=== PATIENT | female | born 1970 | race Caucasian/White ===

== ENCOUNTER 2020-06-04 13:45 | Emergency (ER) | payer OTHER, SELFPAY ==
--- NOTE | ~2020-06-04 | XR_ITS ---
EXAMINATION: XR hip LT 2V w AP pelvis EXAM DATE: 06/04/2020 14:28 INDICATION: Initial encounter following injury, with pain of the left hip. Fall. TECHNIQUE: Left hip frontal, 'frog leg' projections for interpretation. Frontal projection pelvis. C omparison is made to prior examination from 02/13/2018. FINDINGS: Smooth left hip femoral head contour, no radiographic evidence of avascular necrosis. Ther e is mild left hip primary osteoarthritis. There are no acute fractures or dislocations identified. There is no subcutaneous gas. The soft tissue is unremarkable. Right hip replacement and lower lum bar fusion. Sacrum, sacroiliac joints, sacral arcuate lines are intact. IMPRESSION: 1. Pelvis, left hip exam without acute osseous findings. Reviewed, dictated and finalized at location A.
--- NOTE | ~2020-06-04 | CT_ITS ---
EXAMINATION: CT brain wo con, CT cervical spine wo con EXAM DATE: 06/04/2020 14:16 (accession [id number]), 06/04/2020 14:17 (accession [id number]) INDICATION: Fall, head injury, neck pain. TECHNIQUE: Spiral CT of the head was performed without contrast. Axial, coronal and sagittal images were reviewed. Spiral CT of the cervical spine was performed without contrast. Axial images were rev iewed. Coronal and sagittal reformatted images were also reviewed. The dose-length product (DLP) fo r this examination was 605.33 (accession [id number]), 613.09 (accession [id number]) mGy-cm. The exposure was tailored according to patient size, and iterative reconstruction (ASIR) was used as additional dose reduction technique. There is no prior study for comparison. FINDINGS: HEAD CT: There is no acute intraparenchymal hemorrhage. No evidence of intraparenchymal brain mass l esion. No evidence of acute infarction. There is no mass effect or midline shift. There is no obstru ctive hydrocephalus suspected. There are no extra-axial collections. There are no acute calvarial f ractures. The orbits are unremarkable. Soft tissue is unremarkable. The visualized sinuses and mas toid air cells are well aerated. CERVICAL CT: There is no evidence of acute cervical fracture. The odontoid process is intact. Pre-d ens space is normal. Prevertebral soft tissue is normal. There are no soft tissue abnormalities pratibha ntified. There is no disc space widening or traumatic vertebral body subluxation suspected. Overall mild to moderate cervical arthropathy. There is moderate disc disease at C5-6 and 6-7. A detailed l evel by level evaluation of spondylosis can be added as addendum if requested. IMPRESSION: 1. No acute intracranial findings or cervical fracture. Reviewed, dictated and finalized at location A. IMPRESSION: 1. No acute intracranial findings or cervical fracture.
--- NOTE | ~2020-06-04 | CT_ITS ---
EXAMINATION: CTA chest PE protocol DATE: 06/04/2020 16:49 INDICATION: Back pain. Syncope. Elevated d-dimer. TECHNIQUE: Computed tomography (CT) pulmonary angiogram of the chest was performed with 100 mL Omnipa que-350 intravenous contrast. Additional 3D reconstructions utilizing coronal maximum intensity proje ction (MIP) were performed. Automated exposure control and iterative reconstruction technique were em ployed. The dose-length product was 988.37 mGy-cm. COMPARISON: CT abdomen and pelvis dated 08/21/2018 FINDINGS: Poor contrast opacification of the pulmonary arteries with the peak of the contrast bolus having pass ed into the pulmonary veins and left atrium. There is mild streak artifact from dense contrast in the superior vena cava and right atrium. Overall this decreases sensitivity in the first order segmental pulmonary arteries and rendered a more peripheral assessment of the subsegmental pulmonary arteries essentially nondiagnostic. No central pulmonary embolism identified. Mild dependent atelectasis in th e bilateral lower lobes and mild discoid atelectasis at the lingula. No pulmonary edema, pleural effu amanda or pneumothorax. Heart size is normal. No pericardial effusion. Thoracic aorta is normal in wyatt wniter with no dissection. No pathologically enlarged thoracic lymphadenopathy. Diffuse hepatic steatosi s. Chronic pneumobilia likely related to prior cholecystectomy with sternotomy. Moderate thoracic spo ndylosis. IMPRESSION: 1. No central pulmonary embolism. Sensitivity decreased in the segmental pulmonary arteries and essen tially nondiagnostic in the subsegmental pulmonary arteries due to suboptimal timing of the contrast bolus. Reviewed, dictated and finalized at location A. IMPRESSION: 1. No central pulmonary embolism. Sensitivity decreased in the segmental pulmon daniela arteries and essentially nondiagnostic in the subsegmental pulmonary arteri es due to suboptimal timing of the contrast bolus.
--- NOTE | ~2020-06-04 | XR_ITS ---
EXAMINATION: XR lumbar spine 2-3V EXAM DATE: 06/04/2020 14:28 INDICATION: Initial encounter following injury, with pain of the lumbar spine. TECHNIQUE: Lumber spine frontal, lateral, lateral L5-S1 projections for interpretation. There is no prior study for comparison. FINDINGS: Posterior and interbody fusion L4-5. There is moderate to severe loss of the L2-3 disc hei ght, moderate disc disease L3-4 and mild to moderate at L5-S1. The vertebral bodies are aligned in th e AP dimension. Moderate lumbar facet arthropathy. The vertebral body heights are maintained. Minimal lumbar levoscoliosis. There are cholecystectomy clips. Paraspinal site should otherwise unremarkable . IMPRESSION: 1. No acute lumbar findings. 2. Intact L4-5 fusion. 3. Spondylosis. Reviewed, dictated and finalized at location A.
--- NOTE | ~2020-06-04 | XR_ITS ---
EXAMINATION: XR chest 1V EXAM DATE: 06/04/2020 14:28 INDICATION: Fall, wheezing. TECHNIQUE: Frontal and lateral projections of the chest obtained and reviewed. Comparison is made to prior examination from 01/13/2005. FINDINGS: The lungs are clear. There are no pleural effusions. The cardiomediastinal silhouette is within normal limits. There is no pneumothorax suspected. The bones and soft tissues are unremarkab le. IMPRESSION: No acute cardiopulmonary findings. Reviewed, dictated and finalized at location A.
[2020-06-04 13:56] VITALS: BP 110/62; PULSE 89; RESP 20; TEMP 36.6; O2SAT 96
--- NOTE | 2020-06-04 13:58 | ECG_ITS ---
Measurements Intervals [place] Rate: 87 P: 76 HI: 163 QRS: 13 QRSD: 89 T: 29 QT: 339 QTc: 410 Interpretive Statements SINUS RHYTHM BASELINE ARTIFACT- I, II, III, AVR, AVL, AVF, V1-V6 BORDERLINE ECG Electronically Signed On 06-04-2020 14:51:23 CDT by Corey Hannon D.O.
--- NOTE | 2020-06-04 14:05 | ED.FALL ---
HPI - Fall General Chief Complaint: Fall Stated Complaint: BACK PAIN Time Seen by Provider: 06/04/20 13:46 Source: patient Mode of arrival: EMS Limitations: no limitations History of Present Illness HPI Narrative: This patient is a 49 year old female with history DM, Chronic back pain, fibromyalgia who presents via EMS for evaluation of possible syncopal episode. She states she was walking when she developed tingling around mouth and dizziness. She states next thing she knew she was on the ground. She does not know if she passed out. She reports headache, left neck pain, lower back pain and left hip pain. She denies chest pain, cough or sob. She reports she still has some dizziness and nausea. Related Data Home Medications Medication Instructions Recorded Confirmed metformin 500 mg tablet 1,000 mg PO BID tablet 07/31/19 nystatin 100,000 unit/gram topical 1 applic TOPICAL BID 07/31/19 cream oxycodone-acetaminophen 5 mg-325 1 tablet PO Q6H PRN 07/31/19 mg tablet Allergies Allergy/AdvReac Type Severity Reaction Status Date / Time duloxetine Allergy Unknown Unknown Verified 09/26/19 08:04 erythromycin base Allergy Unknown Unknown Verified 09/26/19 08:04 gabapentin Allergy Unknown Unknown Verified 09/26/19 08:04 milnacipran Allergy Unknown Unknown Verified 09/26/19 08:04 Sulfa (Sulfonamide Allergy Unknown Aptyalism Verified 09/26/19 08:04 Antibiotics) Review of Systems Review of Systems: All systems reviewed & are unremarkable except as noted in HPI and below Constitutional: Constitutional: Denies chills and Denies fever(s) Eyes: Eyes: Reports change in vision ENT: Reports dizziness and Denies nasal congestion Cardiovascular: Cardiovascular: Denies chest pain Respiratory: Respiratory: Denies cough and Denies dyspnea Gastrointestinal: Gastrointestinal: Denies abdominal pain, Reports nausea and Reports vomiting Musculoskeletal: Musculoskeletal: Reports back pain and Reports arthralgias Neurologic: Reports dizziness, Reports headache(s) and Reports numbness PMFSH Past Medical History Medical History (Updated 06/04/20 @ 18:02 by Raiza Grace MD) Diabetes mellitus Fibromyalgia Polycystic ovarian syndrome Surgical History Surgical History (Updated 06/04/20 @ 14:10 by Raiza Grace MD) History of bilateral knee replacement Social History Social History Smoking status: Former smoker Second hand tobacco smoke exposure: No Smoking end date: 09/05/08 Alcohol intake: never Exam Const: General: alert Nutritional Appearance: obese Orientation/consciousness: patient oriented x3 HENMT: Head: normocephalic and atraumatic Face and sinus: face symmetric Mouth: Yes Normal oral and palatal mucosa present, Yes lip normal, Yes oropharynx normal and Yes audible dysphonia Throat: posterior oropharynx normal, tonsils normal and uvula midline Eyes: Pupils: Equal, round and reactive pupils present EOM: EOMs intact bilaterally Neck: Neck: no lymphadenopathy Chest: Chest palpation & inspection: normal inspection of the chest Resp: Effort & Inspection: normal respiratory effort, no retractions and no use of accessory muscles Auscultation: clear to auscultation bilaterally Cardio: Rate: regular rate Rhythm: regular rhythm Heart sounds: no murmurs GI: GI Palp: Yes Soft to palpation, No Tenderness to palpation present (GI), No Guarding due to palpation present (GI) and No Rigid due to palpation Skin: General skin exam: normal color Rashes: no rashes Neuro: General: patient oriented x3, moves all extremities and CN's II-XI intact bilaterally Extrem: General: normal to inspection and no pedal edema Course Reevaluation(s) Reevaluation #1: Patient has been able to ambulate without complaint. I reviewed test with patient. [facility] Date: 06/04/20 Time: 17:59 Vital Signs Vital signs: Chacha
[2020-06-04 14:07] LABS: Basophils Percent Auto 0.4 % (0.2-1.2); Eosinophils Absolute Auto 0.2 K/mm3 (0-0.3); Eosinophils Percent Auto 2.1 % (0-4.4); Hematocrit 39.3 % (37.0-47.0); Hemoglobin 12.8 g/dL (12.0-15.0); Immature Granulocyte Absolute 0.04 K/mm3 (0.00-0.031); Immature Granulocyte Percent A 0.5 % (0-0.5); Lymphocytes Absolute Auto 2.43 K/mm3 (0.9-3.2); Lymphocytes Percent Auto 28.6 % (18.3-44.2); Mean Corpuscular HGB Conc 32.6 g/dl (32-36); Mean Corpuscular Hemoglobin 32.2 pg (26-34); Mean Corpuscular Volume 98.7 fl (80-100); Mean Platelet Volume 9.9 fl (7.4-10.4); Monocytes Absolute Auto 0.7 K/mm3 (0.1-0.6); Monocytes Percent Auto 8.2 % (2.6-8.5); Neutrophils Absolute Auto 5.1 K/mm3 (1.3-6.7); Neutrophils Percent Auto 60.2 % (45.5-73.1); Platelet Count Result 251 k/mm3 (150-375); Red Blood Count 3.98 M/mm3 (4.2-5.4); Red Cell Distribution Width 15.6 % (11.5-14.5); White Blood Count 8.5 K/mm3 (4.5-10.0)
[2020-06-04 14:18] LABS: INR 0.9; Prothrombin Time 11.9 Seconds (11.1-14.7)
[2020-06-04 14:20] LABS: Alanine Aminotransferase 28 U/L (4-35); Alkaline Phosphatase 70 U/L (38-126); Anion Gap 8 mmol/L (8-16); Aspartate Amino Transferase 28 U/L (14-36); Bilirubin,Total 0.4 mg/dL (0.2-1.3); Blood Urea Nitrogen 25 mg/dL (7-17); Calcium 9.4 mg/dL (8.4-10.2); Carbon Dioxide 29 mmol/L (22-30); Chloride 100 mmol/L (98-107); Estimated CRCL calculation 103 ml/min; Estimated Glomerular Filt Rate > 60; Glucose 170 mg/dL (65-105); Magnesium 1.7 mg/dL (1.6-2.3); Potassium 4.3 mmol/L (3.4-5.0); Sodium 137 mmol/L (137-145)
[2020-06-04 14:21] LABS: D Dimer 0.49 ug/mL (<0.48)
[2020-06-04 14:31] LABS: Troponin I < 0.012 ng/mL (0.000-0.034)
[2020-06-04] MEDS: ONDANSETRON INJ 4 MG/2 ML VIAL IV PUSH (15:17)
[2020-06-04] MEDS: SODIUM CHLORIDE 0.9% IV 1,000 ML 999 ML IV CONT (15:41)
[2020-06-04] MEDS: KETOROLAC 30 MG/ML VIAL (*BKC) IV PUSH (17:14)
== END 2020-06-04 18:14 | disposition home or self-care (01) ==
PROVIDERS: Emergency Provider General Practice; PCP Family Medicine
DX: R55 Syncope and collapse (principal); E86.0 Dehydration; S16.1XXA Strain of muscle, fascia and tendon at neck level, initial encounter; S39.012A Strain of muscle, fascia and tendon of lower back, initial encounter; M47.816 Spondylosis without myelopathy or radiculopathy, lumbar region; E11.9 Type 2 diabetes mellitus without complications; M79.7 Fibromyalgia; Z79.84 Long term (current) use of oral hypoglycemic drugs; E28.2 Polycystic ovarian syndrome; W18.39XA Other fall on same level, initial encounter
CPT/HCPCS: 36415; 70450; 71045; 71275; 72100; 72125; 73502; 80053; 81025; 83735; 84484; 85025; 85380; 85610; 85730; 93005; 96361; 96365; 96375; 99284; J0131; J1885; J2405; J7030; Q9967

== ENCOUNTER → 2020-06-05 11:48 | Outpatient (CLI) | payer OTHER, SELFPAY ==
--- NOTE | ~2020-06-05 | US_ITS ---
EXAMINATION: US abdomen complete DATE: 06/05/2020 12:20 INDICATION: Calculus of bile duct without cholangitis or cholecystitis. TECHNIQUE: Multiple grayscale and Doppler ultrasound images of the abdomen were obtained. COMPARISON: CT abdomen and pelvis 08/21/2018 FINDINGS: The aorta, inferior vena cava, and pancreas are obscured by bowel gas. There is diffuse hep atic steatosis. No liver surface nodularity. The gallbladder is absent. The common duct is normal and measures 5 mm. The kidneys are normal in size. The spleen is normal in size. IMPRESSION: 1. Diffuse hepatic steatosis. Reviewed, dictated and finalized at location A.
== END ==
PROVIDERS: PCP Family Medicine; Visit Provider Nurse Practitioner Family
DX: K80.50 Calculus of bile duct without cholangitis or cholecystitis without obstruction (principal); K76.0 Fatty (change of) liver, not elsewhere classified
CPT/HCPCS: 76700

== ENCOUNTER 2020-06-30 12:43 | Outpatient (CLI) | payer OTHER, SELFPAY ==
--- NOTE | ~2020-06-30 | XR_ITS ---
XR ankle LT 2V DATE: 06/30/2020 13:05 INDICATION: Pain at left heel near the Achilles TECHNIQUE: 2 views COMPARISON: None FINDINGS: There is very severe enthesopathy of the calcaneus posteriorly. There is moderately promine nt plantar calcaneal enthesopathy as well. No fracture or dislocation of the ankle or disruption of the ankle mortise. No periosteal reaction or bone destruction. IMPRESSION: Prominent calcaneal enthesopathy, particularly posteriorly Reviewed, dictated and finalized at location A.
== END 2020-06-30 12:44 | disposition home or self-care (01) ==
PROVIDERS: PCP Family Medicine; Visit Provider Nurse Practitioner Family
DX: M77.32 Calcaneal spur, left foot (principal)
CPT/HCPCS: 73600

== ENCOUNTER 2020-09-16 01:11 | Outpatient (CLI) | payer OTHER, SELFPAY ==
[2020-09-16 19:22] LABS: SARS-CoV-2 RNA PCR Negative
== END 2020-09-16 01:12 | disposition home or self-care (01) ==
LOC: ANHCOVIDDT 01:11
PROVIDERS: PCP Family Medicine; Visit Provider Internal Medicine Gastroenterology
DX: Z01.812 Encounter for preprocedural laboratory examination (principal); Z20.822 Contact with and (suspected) exposure to COVID-19
CPT/HCPCS: C9803; U0003; U0005

== ENCOUNTER 2020-09-19 01:44 | Day surgery (SDC) | payer OTHER, SELFPAY ==
--- NOTE | 2020-08-06 13:03 | PC.NURSE ---
Called pt to complete PAT call for GI procedure. Pt. states she recently had an ankle surgery and is using a scooter for ambulation/transferring. Pt. states she wants to cancel. Informed pt. she needed to call Dr. Chakraborty office to cancel procedure.
[2020-09-11 10:25] VITALS: BMI 56.5
[2020-09-19 10:26] VITALS: BP 132/63; PULSE 85; RESP 22; O2SAT 96
[2020-09-19] MEDS: LACTATED RINGERS 1,000 ML 150 ML IV CONT (10:40)
[2020-09-19 10:46] LABS: Glucose Point of Care 179 (65-105)
--- NOTE | 2020-09-19 11:06 | WPDANESEPPF ---
Anes - Initial Pre Proc Eval Procedure: Operation Date: 09/19/20 11:00 Proposed Procedures p Screening Colonoscopy - Myles Kirby MD Date/Time: 09/19/20 11:06 Surgeon: Myles Kirby MD Pre Op Diagnosis: Neoplasm Screening Patient Data Age: 49 Gender: F Height: 5 ft 6 in Weight: 155 kg Last Vital Signs Pulse 85 09/19/20 10:26 Resp 22 H 09/19/20 10:26 BP 132/63 09/19/20 10:26 Pulse Ox 96 09/19/20 10:26 Allergies Allergy/AdvReac Type Severity Reaction Status Date / Time duloxetine Allergy Unknown Unknown Verified 09/19/20 10:24 erythromycin base Allergy Unknown Unknown Verified 09/19/20 10:24 gabapentin Allergy Unknown Unknown Verified 09/19/20 10:24 milnacipran Allergy Unknown Unknown Verified 09/19/20 10:24 Sulfa (Sulfonamide Allergy Unknown Aptyalism Verified 09/19/20 10:24 Antibiotics) Home Medications Medication Instructions Recorded Confirmed Type bupropion HCl 150 mg 24 hr tablet, 150 mg PO QAM #90 tablet 06/05/20 09/11/20 Rx extended release hydrochlorothiazide 25 mg tablet 25 mg PO DAILY #30 tablet 06/05/20 09/11/20 Rx pregabalin 75 mg capsule 75 mg PO BID #180 cap 06/05/20 09/11/20 Rx sitagliptin 50 mg-metformin ER 1 tablet PO BID #60 tablet 06/26/20 09/11/20 Rx 1,000 mg tablet,extended release 24h mp tramadol 50 mg tablet 50 mg PO Q6H PRN #28 tablet 06/26/20 09/11/20 Rx pravastatin 20 mg tablet 20 mg PO DAILY #30 tablet 08/18/20 09/11/20 Rx celecoxib 200 mg capsule 200 mg PO BID #180 cap 09/07/20 09/11/20 Rx xrqnem-nfppaomf-ajgvfob 2 cap PO TID #240 cap 09/07/20 09/11/20 Rx 36,000-114,000-180,000 unit capsule,delay rel lisinopril 10 mg tablet 10 mg PO DAILY #30 tablet 09/07/20 09/11/20 Rx cholecalciferol (vitamin D3) 50,000 unit PO DAILY 09/11/20 09/11/20 History Laboratory Tests 09/19/20 10:41 POC Capillary Glucose 179 mg/dl H mg/dl (65-105) Patient hx anesthesia problems: none Family hx anesthesia problems: none PMFSH Past Medical History Medical History Diabetes mellitus Fibromyalgia Morbid obesity Polycystic ovarian syndrome Surgical History Surgical History History of bilateral knee replacement Family History Family History Other Diabetes mellitus Family history of coronary artery disease Family history of hypercholesterolemia Family history of malignant neoplasm of cervix Hypertension Social History Social History Smoking packs per day: 1 Smoking cigarettes per day: 20.0 Smoking status: Former smoker Tobacco type: cigarettes Second hand tobacco smoke exposure: No Smoking end date: 09/05/08 Alcohol intake: former Alcohol use details: NONE IN 12 YEARS Substance use: former Substance use type: marijuana Other substance usage details: SPEED Last use: 30 YEARS Living arrangements: with family Spiritual care concerns: No Anes - Eval Final PreProcedure Day of Procedure 09/19/20 11:06 Patient weight: super morbidly obese Heart: regular rate and rhythm Lungs: clear to auscultation Airway: Mallampati scale class II Neurological: alert and oriented Last oral intake: >/= 8 hours ASA classification: IV Emergent: no Anesthetic plan: proceed Anesthesia type and monitoring: general GIVS and standard monitoring Informed Consent: The patient's anesthetic plan and its attendant risks and benefits were discussed with the patient/family/POA. Questions were solicited and answers provided to the satisfaction of the patient/family/POA.
--- NOTE | 2020-09-19 11:06 | PM.HPGS ---
History of Present Illness History of Present Illness Consent: Risks, benefits, and alternatives have been discussed and questions answered. Patient agrees to proceed with procedure. Chief complaint: Neoplasm Screening Narrative: Aileen Whittaker is a 49 year old female here for colon screening but also diarrhea recently started on creon as trial (denies h/o pancreatitis), she had cholecystectomy Review of Systems Constitutional: Constitutional: Denies headache(s) and Denies weakness Eyes: Eyes: Denies blurry vision ENT: Reports Normal hearing present, Denies headache(s) and Denies neck pain Cardiovascular: Cardiovascular: Denies chest pain and Denies dyspnea Respiratory: Respiratory: Denies dyspnea Gastrointestinal: Gastrointestinal: Reports no additional gastrointestinal complaints Genitourinary: Genitourinary: Denies dysuria Musculoskeletal: Musculoskeletal: Denies neck pain Integumentary/Breasts: Skin/Breast: Denies dry skin Neurologic: Reports Normal hearing present, Denies headache(s) and Denies weakness Psychiatric: Psychiatric: Denies anxiety Endocrine: Endocrine: Denies change in body appearance Hematologic/Lymphatic: Hematologic/Lymphatic: Denies easy bleeding Allergic/Immunologic: Allergic/Immunologic: Denies urticaria PMFSH Past Medical History Medical History Diabetes mellitus Fibromyalgia Morbid obesity Polycystic ovarian syndrome Surgical History Surgical History History of bilateral knee replacement Family History Family History Other Diabetes mellitus Family history of coronary artery disease Family history of hypercholesterolemia Family history of malignant neoplasm of cervix Hypertension Social History Social History Smoking packs per day: 1 Smoking cigarettes per day: 20.0 Smoking status: Former smoker Tobacco type: cigarettes Second hand tobacco smoke exposure: No Smoking end date: 09/05/08 Alcohol intake: former Alcohol use details: NONE IN 12 YEARS Substance use: former Substance use type: marijuana Other substance usage details: SPEED Last use: 30 YEARS Living arrangements: with family Spiritual care concerns: No Meds Home Medications and Allergies Home Medications Medication Instructions Recorded Confirmed Type bupropion HCl 150 mg 24 hr tablet, 150 mg PO QAM #90 tablet 06/05/20 09/11/20 Rx extended release hydrochlorothiazide 25 mg tablet 25 mg PO DAILY #30 tablet 06/05/20 09/11/20 Rx pregabalin 75 mg capsule 75 mg PO BID #180 cap 06/05/20 09/11/20 Rx sitagliptin 50 mg-metformin ER 1 tablet PO BID #60 tablet 06/26/20 09/11/20 Rx 1,000 mg tablet,extended release 24h mp tramadol 50 mg tablet 50 mg PO Q6H PRN #28 tablet 06/26/20 09/11/20 Rx pravastatin 20 mg tablet 20 mg PO DAILY #30 tablet 08/18/20 09/11/20 Rx celecoxib 200 mg capsule 200 mg PO BID #180 cap 09/07/20 09/11/20 Rx rmpoay-clowfvlp-zmmtvoa 2 cap PO TID #240 cap 09/07/20 09/11/20 Rx 36,000-114,000-180,000 unit capsule,delay rel lisinopril 10 mg tablet 10 mg PO DAILY #30 tablet 09/07/20 09/11/20 Rx cholecalciferol (vitamin D3) 50,000 unit PO DAILY 09/11/20 09/11/20 History Allergies Allergy/AdvReac Type Severity Reaction Status Date / Time duloxetine Allergy Unknown Unknown Verified 09/19/20 10:24 erythromycin base Allergy Unknown Unknown Verified 09/19/20 10:24 gabapentin Allergy Unknown Unknown Verified 09/19/20 10:24 milnacipran Allergy Unknown Unknown Verified 09/19/20 10:24 Sulfa (Sulfonamide Allergy Unknown Aptyalism Verified 09/19/20 10:24 Antibiotics) Vital Signs Vital Signs - 24 hr 09/19/20 10:26 Pulse Rate 85 Respiratory Rate 22 H Blood Pressure 132/63 Pulse Oximetry 96 Exam Const: Gener
[2020-09-19 11:35] VITALS: BP 100/63; PULSE 83; RESP 22; O2SAT 98
[2020-09-19 11:45] VITALS: BP 128/86; PULSE 89; RESP 22; O2SAT 96
[2020-09-19 11:55] VITALS: BP 116/66; PULSE 85; RESP 18; O2SAT 98
== END 2020-09-19 12:14 | disposition home or self-care (01) ==
PROVIDERS: PCP Family Medicine; Visit Provider Internal Medicine Gastroenterology
PROC: 0DJD8ZZ Inspection of Lower Intestinal Tract, Via Natural or Artificial Opening Endoscopic (ICD-10-PCS; CPT 45378; principal; 2020-09-19 11:00)
DX: Z12.11 Encounter for screening for malignant neoplasm of colon (principal); K63.5 Polyp of colon; D12.3 Benign neoplasm of transverse colon; E11.9 Type 2 diabetes mellitus without complications; E28.2 Polycystic ovarian syndrome; M79.7 Fibromyalgia; Z87.891 Personal history of nicotine dependence; E66.01 Morbid (severe) obesity due to excess calories; Z68.43 Body mass index [BMI] 50.0-59.9, adult; F12.10 Cannabis abuse, uncomplicated; R19.7 Diarrhea, unspecified; K57.30 Diverticulosis of large intestine without perforation or abscess without bleeding; K64.4 Residual hemorrhoidal skin tags
CPT/HCPCS: 45385; 45380; 88305; J2704; J7120

== ENCOUNTER 2020-11-06 09:15 | Outpatient (RCR) | payer OTHER, SELFPAY ==
[2020-10-16 15:15] VITALS: BMI 56.5
[2020-10-16 15:16] VITALS: BMI 56.5
== END 2021-01-06 08:01 | disposition home or self-care (01) ==
LOC: ANHDMC 09:15
PROVIDERS: PCP Family Medicine; Visit Provider Family Medicine
DX: E11.9 Type 2 diabetes mellitus without complications (principal); E66.9 Obesity, unspecified; Z71.3 Dietary counseling and surveillance; Z71.89 Other specified counseling
CPT/HCPCS: 97802; G0108

== ENCOUNTER → 2021-01-02 02:11 | Outpatient (CLI) | payer OTHER, SELFPAY ==
[2021-01-02 19:11] LABS: SARS-CoV-2 RNA PCR Negative
== END ==
PROVIDERS: PCP Family Medicine; Visit Provider Internal Medicine Gastroenterology
DX: Z01.812 Encounter for preprocedural laboratory examination (principal); Z20.822 Contact with and (suspected) exposure to COVID-19
CPT/HCPCS: C9803; U0003; U0005

== ENCOUNTER 2021-01-05 01:42 | Day surgery (SDC) | payer OTHER, SELFPAY ==
[2020-12-24 13:39] VITALS: BMI 55.1
[2021-01-05 10:56] VITALS: BP 153/80; PULSE 88; RESP 20; TEMP 36.6; O2SAT 94; BMI 55.5
[2021-01-05 11:14] LABS: Glucose Point of Care 138 (65-105)
[2021-01-05] MEDS: LACTATED RINGERS 1,000 ML 150 ML IV CONT (11:14)
--- NOTE | 2021-01-05 11:36 | WPDANESEPPF ---
Anes - Initial Pre Proc Eval Procedure: Operation Date: 01/05/21 12:30 Proposed Procedures p Esophagogastroduodenoscopy - Myles Kirby MD Date/Time: 01/05/21 11:36 Surgeon: Myles Kirby MD Pre Op Diagnosis: epigastric pain, diarrhea Patient Data Age: 50 Gender: F Height: 5 ft 6 in Weight: 156.2 kg Last Vital Signs Temp 36.6 C 01/05/21 10:56 Pulse 88 01/05/21 10:56 Resp 20 01/05/21 10:56 BP 153/80 H 01/05/21 10:56 Pulse Ox 94 01/05/21 10:56 Allergies Allergy/AdvReac Type Severity Reaction Status Date / Time milnacipran Allergy Severe Other Verified 01/05/21 10:54 Sulfa (Sulfonamide Allergy Severe Anaphylactic Verified 01/05/21 10:54 Antibiotics) Shock duloxetine Allergy Intermediate Sweating Verified 01/05/21 10:54 erythromycin base Allergy Intermediate Nausea and Verified 01/05/21 10:54 Vomiting gabapentin Allergy Unknown Swelling Verified 01/05/21 10:54 Home Medications Medication Instructions Recorded Confirmed Type bupropion HCl 150 mg 24 hr tablet, 150 mg PO QAM #90 tablet 06/05/20 12/24/20 Rx extended release sitagliptin 50 mg-metformin ER 1 tablet PO BID #60 tablet 06/26/20 12/24/20 Rx 1,000 mg tablet,extended release 24h mp tramadol 50 mg tablet 50 mg PO Q6H PRN #28 tablet 06/26/20 12/24/20 Rx hydrochlorothiazide 25 mg tablet 25 mg PO DAILY #30 tablet 10/05/20 12/24/20 Rx celecoxib 200 mg capsule 200 mg PO BID #180 cap 11/02/20 12/24/20 Rx blood sugar diagnostic #120 ea 11/10/20 11/10/20 Rx semaglutide 1 mg/dose (4 mg/3 mL) 1 mg SUBCUT WEEKLY #9 ml 11/10/20 12/24/20 Rx subcutaneous pen injector lisinopril 10 mg tablet 10 mg PO DAILY #30 tablet 11/30/20 12/24/20 Rx lancets 33 gauge #120 ea 12/03/20 Rx pravastatin 20 mg tablet 20 mg PO DAILY #30 tablet 12/03/20 12/24/20 Rx pregabalin 75 mg capsule 75 mg PO BID #180 cap 12/08/20 12/24/20 Rx cholestyramine-aspartame 4 gram 4 g PO DAILY #210 g 12/11/20 12/24/20 Rx oral powder Laboratory Tests 01/05/21 11:12 POC Capillary Glucose 138 mg/dl H mg/dl (65-105) Patient hx anesthesia problems: none Family hx anesthesia problems: none PMFSH Past Medical History Medical History Adenomatous colon polyp Colon cancer screening Diabetes mellitus Fibromyalgia GERD (gastroesophageal reflux disease) Morbid obesity Polycystic ovarian syndrome Tobacco consumption Surgical History Surgical History History of bilateral knee replacement Family History Family History Father Heart disease Hypertension Diabetes mellitus Kidney disease Arthritis Mother No problems noted. Sibling No problems noted. 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
--- NOTE | 2021-01-05 11:43 | WPDHPUPDATE1 ---
History and Physical Update Update Date/Time: 01/05/21 11:43 History and Physical has been reviewed, including an updated exam of the patient. There are NO changes in the patient's condition. Risks, benefits, and alternatives have been discussed and questions answered. Patient agrees to proceed with procedure.
[2021-01-05 11:56] VITALS: BP 95/39; PULSE 95; RESP 18; O2SAT 95
[2021-01-05 12:06] VITALS: BP 92/50; PULSE 87; RESP 18; O2SAT 95
[2021-01-05 12:16] VITALS: BP 112/70; PULSE 89; RESP 20; O2SAT 96
== END 2021-01-05 12:27 | disposition home or self-care (01) ==
PROVIDERS: PCP Family Medicine; Visit Provider Internal Medicine Gastroenterology
PROC: 0DJ08ZZ Inspection of Upper Intestinal Tract, Via Natural or Artificial Opening Endoscopic (ICD-10-PCS; CPT 43235; principal; 2021-01-05 12:30)
DX: R10.13 Epigastric pain (principal); K21.9 Gastro-esophageal reflux disease without esophagitis; E11.9 Type 2 diabetes mellitus without complications; R19.7 Diarrhea, unspecified; K31.84 Gastroparesis; K29.50 Unspecified chronic gastritis without bleeding; M79.7 Fibromyalgia; E28.2 Polycystic ovarian syndrome; F17.210 Nicotine dependence, cigarettes, uncomplicated; F12.90 Cannabis use, unspecified, uncomplicated; Z86.010 Personal history of colon polyps; E66.01 Morbid (severe) obesity due to excess calories; Z68.43 Body mass index [BMI] 50.0-59.9, adult
CPT/HCPCS: 43239; 82948; 88305; J2001; J2704; J7120

== ENCOUNTER 2021-02-16 13:13 | Outpatient (CLI) | payer OTHER, SELFPAY ==
--- NOTE | ~2021-02-16 | CT_ITS ---
EXAMINATION: CT BRAIN W/O DATE: 02/16/2021 13:57 INDICATION: Dizziness and giddiness. TECHNIQUE: Computed tomography (CT) of the head was performed without intravenous contrast. The dose- length product was 605.33 mGy-cm. Automated exposure control and iterative reconstruction technique w ere employed. COMPARISON: No prior studies for comparison. FINDINGS: Normal brain parenchymal volume for age. Normal alexander-white differentiation. No acute intrac ranial hemorrhage, infarction, mass or mass effect. No ventriculomegaly or midline shift. Midline sagittal images demonstrate a normal corpus callosum, c raniovertebral junction and sella turcica. Basilar cisterns are patent. Paranasal sinuses and mastoids are pneumatized. No depressed skull fractures. IMPRESSION: 1. No acute intracranial abnormality. Reviewed, dictated and finalized at location A.
--- NOTE | 2021-02-16 14:18 | ECG_ITS ---
Measurements Intervals [place] Rate: 84 P: 38 [place]: 173 QRS: 19 QRSD: 90 T: 42 QT: 349 QTc: 413 Interpretive Statements SINUS RHYTHM DELAYED PRECORDIAL R/S TRANSITION BORDERLINE ECG Electronically Signed On 02-16-2021 15:01:48 CDT by Corey Hannon D.O.
[2021-02-16 14:23] LABS: Basophils Percent Auto 0.3 % (0.2-1.2); Eosinophils Absolute Auto 0.2 K/mm3 (0-0.3); Eosinophils Percent Auto 2.5 % (0-4.4); Hematocrit 40.3 % (37.0-47.0); Hemoglobin 12.9 g/dL (12.0-15.0); Immature Granulocyte Absolute 0.03 K/mm3 (0.00-0.031); Immature Granulocyte Percent A 0.3 % (0-0.5); Lymphocytes Absolute Auto 2.39 K/mm3 (0.9-3.2); Lymphocytes Percent Auto 25.3 % (18.3-44.2); Mean Corpuscular Hemoglobin 31.9 pg (26-34); Mean Corpuscular Volume 99.8 fl (80-100); Mean Platelet Volume 9.3 fl (7.4-10.4); Monocytes Absolute Auto 0.5 K/mm3 (0.1-0.6); Monocytes Percent Auto 5.6 % (2.6-8.5); Neutrophils Absolute Auto 6.2 K/mm3 (1.3-6.7); Platelet Count Result 241 k/mm3 (150-375); Red Blood Count 4.04 M/mm3 (4.2-5.4); Red Cell Distribution Width 15.8 % (11.5-14.5); White Blood Count 9.4 K/mm3 (4.5-10.0)
[2021-02-16 14:42] LABS: Alanine Aminotransferase 26 U/L (4-35); Albumin Level 4.1 g/dL (3.5-5.1); Alkaline Phosphatase 61 U/L (38-126); Anion Gap 9 mmol/L (8-16); Aspartate Amino Transferase 36 U/L (14-36); Bilirubin,Total 0.4 mg/dL (0.2-1.3); Blood Urea Nitrogen 22 mg/dL (7-17); Calcium 9.8 mg/dL (8.4-10.2); Carbon Dioxide 28 mmol/L (22-30); Chloride 102 mmol/L (98-107); Estimated Glomerular Filt Rate 58; Glucose 104 mg/dL (65-105); Magnesium 1.6 mg/dL (1.6-2.3); Potassium 4.5 mmol/L (3.4-5.0); Sodium 139 mmol/L (137-145)
[2021-02-16 15:13] LABS: Cortisol Random 7.83 ug/dL
== END 2021-02-16 13:14 | disposition home or self-care (01) ==
LOC: ANHIMG 13:14
PROVIDERS: PCP Family Medicine; Visit Provider Nurse Practitioner Family
DX: R42 Dizziness and giddiness (principal); R55 Syncope and collapse; R44.8 Other symptoms and signs involving general sensations and perceptions
CPT/HCPCS: 36415; 70450; 80053; 82533; 82607; 83735; 84443; 85025; 93005

== ENCOUNTER 2021-06-24 12:09 | Outpatient (CLI) | payer OTHER, SELFPAY ==
--- NOTE | ~2021-06-24 | XR_ITS ---
EXAMINATION: XR hand LT min 3V DATE: 06/24/2021 12:32 INDICATION: Left hand pain at the base of the thumb post fall 3 weeks prior TECHNIQUE: Posteroanterior, oblique and lateral views of the left hand were obtained. COMPARISON: None. FINDINGS: Bone alignment is normal. No fracture. Mild osteoarthritis at the first carpometacarpal joint. Additi onal minimal to mild osteoarthritis at several of the metacarpophalangeal and interphalangeal joints. Soft tissues are unremarkable. Soft tissues are unremarkable. IMPRESSION: 1. 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 No acute osseous abnormality. Reviewed, dictated and finalized at location A. IMPRESSION: 1. Minimal to mild polyarticular osteoarthritis with typical distribution at th e left hand. No acute osseous abnormality.
== END 2021-06-24 12:10 | disposition home or self-care (01) ==
LOC: ANHIMG 12:13
PROVIDERS: PCP Family Medicine; Visit Provider Nurse Practitioner Family
DX: M79.642 Pain in left hand (principal); M19.042 Primary osteoarthritis, left hand
CPT/HCPCS: 73130

== ENCOUNTER 2023-08-01 15:02 | Outpatient (CLI) | payer OTHER, SELFPAY ==
--- NOTE | 2023-08-01 15:26 | ECG_ITS ---
Measurements Intervals [place] Rate: 57 P: 37 VA: 155 QRS: 12 QRSD: 89 T: 25 QT: 424 QTc: 416 Interpretive Statements SINUS BRADYCARDIA LOW QRS VOLTAGE IN PRECORDIAL LEADS CONSIDER INFERIOR INFARCT, AGE INDETERMINATE BASELINE WANDER- I, II, III, AVR, AVL, AVF, V1-V2 ABNORMAL ECG COMPARED TO ECG 02/16/2021 14:44:28 SINUS BRADYCARDIA NOW PRESENT Electronically Signed On 08-01-2023 15:46:50 APPLICATION PERFORMANCE ENGINEER by Corey Hannon D.O.
[2023-08-01 15:29] LABS: Hematocrit 39.4 % (37.0-47.0); Hemoglobin 12.1 g/dL (12.0-15.0); Mean Corpuscular HGB Conc 30.7 g/dl (32-36); Mean Corpuscular Hemoglobin 31.4 pg (26-34); Mean Corpuscular Volume 102.3 fl (80-100); Mean Platelet Volume 10.6 fl (7.4-10.4); Platelet Count Result 207 k/mm3 (150-375); Red Blood Count 3.85 M/mm3 (4.2-5.4); Red Cell Distribution Width 14.8 % (11.5-14.5); White Blood Count 6.4 K/mm3 (4.5-10.0)
[2023-08-01 15:38] LABS: Alanine Aminotransferase 38 U/L (6-35); Albumin Level 4.3 g/dL (3.5-5.1); Alkaline Phosphatase 90 U/L (38-126); Anion Gap 11 mmol/L (8-16); Aspartate Amino Transferase 40 U/L (14-36); Bilirubin,Total 0.8 mg/dL (0.2-1.3); Blood Urea Nitrogen 21 mg/dL (7-17); Calcium 9.3 mg/dL (8.4-10.2); Carbon Dioxide 27 mmol/L (22-30); Chloride 104 mmol/L (98-107); Estimated Glomerular Filt Rate 58; Glucose 87 mg/dL (65-110); Magnesium 2.1 mg/dL (1.6-2.3); Potassium 3.7 mmol/L (3.4-5.0); Sodium 142 mmol/L (137-145); Uric Acid 7.8 mg/dL (2.5-7.5)
[2023-08-01 15:47] LABS: Appearance Urine Cloudy (Clear); Bacteria Urine None Seen /hpf; Bilirubin Urine Negative (Negative); Blood Urine Negative (Negative); Calcium Oxalate Crystals Urine Present /hpf; Color Urine Yellow (Yellow); Glucose Urine UA Negative (Negative); Ketones Urine Negative (Negative); Leukocyte Esterase Ur Negative LEU/UL (NEGATIVE); Need Manual Microscopic Reviewed; Nitrate Urine Negative (Negative); Non Pathogenic Casts 0-2; Protein Urine Negative (Negative); Specific Grav Ur 1.019 (1.001-1.035); Squamous Epithelial Cell Urine None seen /hpf (Few); WBC Urine 0-5 /hpf (0-3); pH Urine 5.5 (5.0-9.0)
[2023-08-01 15:48] LABS: Add Urine Microscopic? YES
[2023-08-02 00:53] LABS: Microalbumin Urine Random 8.5 mg/L (0-16.7)
[2023-08-02 00:55] LABS: Creatinine Urine 110.9 mg/dL; MALB Creatinine Ratio 7.7 mg/g (0-30)
== END 2023-08-01 15:03 | disposition home or self-care (01) ==
PROVIDERS: PCP Family Medicine; Visit Provider Family Medicine
DX: G62.9 Polyneuropathy, unspecified (principal); N28.89 Other specified disorders of kidney and ureter; I10 Essential (primary) hypertension; E11.9 Type 2 diabetes mellitus without complications; M10.9 Gout, unspecified; E87.6 Hypokalemia; R74.8 Abnormal levels of other serum enzymes
CPT/HCPCS: 36415; 80053; 81001; 82043; 82607; 83735; 84443; 84550; 85027; 93005